=== PATIENT | male | born 1995 | race Caucasian/White ===

== ENCOUNTER 2018-04-12 11:18 | Emergency (ER) | payer OTHER ==
[~2018-04-12] VITALS: Ht 190.5 cm; Wt 81.7 kg
[2018-04-12] MEDS ORDERED: AUGMENTIN 875-1 EACH PO (11:35)
[2018-04-12 13:35] VITALS: BP 122/77
== END 2018-04-12 13:36 | disposition home or self-care (01) ==
LOC: ER 11:18
DX: S81.831A Puncture wound without foreign body, right lower leg, initial encounter (principal); Z23 Encounter for immunization; J45.909 Unspecified asthma, uncomplicated; W54.0XXA Bitten by dog, initial encounter; Y93.89 Activity, other specified; Y92.89 Other specified places as the place of occurrence of the external cause; Y99.8 Other external cause status

== ENCOUNTER 2018-04-15 17:23 | Emergency (ER) | payer OTHER ==
[~2018-04-15] VITALS: Ht 190.5 cm; Wt 81.7 kg
[~2018-04-15 17:23] MED LIST: AUGMENTIN 875-1 EACH PO
[2018-04-15 18:00] VITALS: BP 124/82
== END 2018-04-15 18:00 | disposition home or self-care (01) ==
LOC: ER 17:23
DX: S81.831A Puncture wound without foreign body, right lower leg, initial encounter (principal); Z23 Encounter for immunization; J45.909 Unspecified asthma, uncomplicated; W54.0XXA Bitten by dog, initial encounter; Y93.89 Activity, other specified; Y92.89 Other specified places as the place of occurrence of the external cause; Y99.8 Other external cause status

== ENCOUNTER 2018-04-19 10:04 | Emergency (ER) | payer OTHER ==
[~2018-04-19] VITALS: Ht 190.5 cm; Wt 81.7 kg
[2018-04-19 10:27] VITALS: BP 146/86
== END 2018-04-19 10:30 | disposition home or self-care (01) ==
LOC: ER 10:04
DX: Z23 Encounter for immunization (principal); J45.909 Unspecified asthma, uncomplicated

== ENCOUNTER 2018-04-27 11:11 | Emergency (ER) | payer OTHER ==
[~2018-04-27] VITALS: Ht 190.5 cm; Wt 81.7 kg
[2018-04-27 11:12] VITALS: BP 137/63
== END 2018-04-27 11:41 | disposition home or self-care (01) ==
LOC: ER 11:11
DX: Z23 Encounter for immunization (principal); J45.909 Unspecified asthma, uncomplicated; W54.0XXD Bitten by dog, subsequent encounter